=== PATIENT | male | born 1965 | race Caucasian/White ===

== ENCOUNTER 2017-10-18 19:40 | Emergency (ER) | payer OTHER ==
[~2017-10-18] VITALS: Ht 165.1 cm; Wt 127.0 kg
[~2017-10-18 19:40] MED LIST: Bactrim Ds Tab1 EACH PO; Cleocin HCl300 MG PO; HYDR1TAB94 PO; Norco 5-325 Ta1 EACH PO
[2017-10-18] MEDS ORDERED: Monodox100 MG PO (21:08)
== END 2017-10-18 21:20 | disposition home or self-care (01) ==
LOC: ER 19:40
DX: S80.12XA Contusion of left lower leg, initial encounter (principal); L03.116 Cellulitis of left lower limb; V89.2XXA Person injured in unspecified motor-vehicle accident, traffic, initial encounter; Z79.891 Long term (current) use of opiate analgesic
CPT/HCPCS: 73562-LT; 93971; 99284

== ENCOUNTER 2019-02-01 13:07 | Emergency (ER) | payer OTHER ==
[~2019-02-01] VITALS: Ht 165.1 cm; Wt 127.0 kg
[~2019-02-01 13:07] MED LIST changes: +Monodox100 MG PO
[2019-02-01] MEDS ORDERED: HYDR1TAB94 PO (14:56)
[2019-02-01] MEDS ORDERED: IBUP600 PO (14:56)
== END 2019-02-01 15:11 | disposition home or self-care (01) ==
LOC: ER 13:07
DX: R07.81 Pleurodynia (principal); Z79.899 Other long term (current) drug therapy; Z79.891 Long term (current) use of opiate analgesic; W18.39XA Other fall on same level, initial encounter
CPT/HCPCS: 71101; 99283-25

== ENCOUNTER 2019-02-03 15:34 | Emergency (ER) | payer OTHER ==
[~2019-02-03] VITALS: Ht 165.1 cm; Wt 127.0 kg
[~2019-02-03 15:34] MED LIST changes: +IBUP600 PO
[2019-02-03 17:20] LABS: BASOPHILS ABSOLUTE AUTO 0.03 K/mm3 (0.00-0.23); BASOPHILS PERCENT AUTO 1 % (0-2); EOSINOPHILS ABSOLUTE AUTO 0.08 K/mm3 (0.00-0.68); EOSINOPHILS PERCENT AUTO 1 % (0-6); Hematocrit 48.6 % (37.0-53.0); Hemoglobin 16.1 g/dL (13.5-17.5); IMMATURE GRAN ABSOLUTE AUTO 0.01 K/mm3 (0.00-0.10); IMMATURE GRAN PERCENT AUTO 0 % (0-1); LYMPHOCYTES ABSOLUTE AUTO 1.39 K/mm3 (0.84-5.20); LYMPHOCYTES PERCENT AUTO 25 % (21-46); MONOCYTES ABSOLUTE AUTO 0.42 K/mm3 (0.16-1.47); MONOCYTES PERCENT AUTO 7 % (4-13); Mean Corpuscular HGB 31.4 pg (26.0-34.0); Mean Corpuscular HGB Conc 33.1 g/dL (31.5-36.5); Mean Corpuscular Volume 95 fL (80-100); NEUTROPHILS ABSOLUTE AUTO 3.72 K/mm3 (1.96-9.15); NEUTROPHILS PERCENT AUTO 66 % (41-73); Platelet Count 191 K/mm3 (150-400); RDW Standard Deviation 45.4 fL (35.1-46.3); Red Blood Cell Count 5.12 M/mm3 (4.30-5.90); White Blood Cell Count 5.65 K/mm3 (4.00-11.30)
[2019-02-03 17:40] LABS: Alanine Aminotransfer (ALT/SGP 18 U/L (12-78); Albumin, Blood 3.8 g/dL (3.4-5.0); Alk Phos 80 U/L (50-136); Anion Gap 4 mmol/L (6-16); Aspartate Aminotrans (AST/SGOT 12 U/L (12-37); Bilirubin, Total 0.9 mg/dL (0.1-1.0); Blood Urea Nitrogen 15 mg/dL (8-24); Bun/Creatinine Ratio 19.7 (12.0-20.0); CO2, Blood 31 mmol/L (21-32); Calcium, Blood 9.2 mg/dL (8.5-10.1); Chloride, Blood 103 mmol/L (98-108); Creatinine, Blood 0.76 mg/dL (0.60-1.20); Glomerular Filtration Rate >60 (60-); Glucose, Blood 84 mg/dL (70-99); Potassium, Blood 3.9 mmol/L (3.5-5.5); Sodium, Blood 138 mmol/L (136-145); Total Protein, Blood 7.8 g/dL (6.4-8.2)
[2019-02-03] MEDS ORDERED: Percocet 5-3251 EACH PO (22:03)
== END 2019-02-03 22:20 | disposition home or self-care (01) ==
LOC: ER 15:34
PROVIDERS: Physician Assistant
DX: R10.12 Left upper quadrant pain (principal); R07.81 Pleurodynia; Z98.890 Other specified postprocedural states
CPT/HCPCS: 36415; 74177; 80053; 83690; 85025; 99284-25; A9270; Q9967

== ENCOUNTER 2019-12-04 22:38 | Inpatient (IN) | payer OTHER ==
[~2019-12-04] VITALS: Ht 165.1 cm; Wt 132.0 kg
[~2019-12-04 22:38] MED LIST changes: +Percocet 5-3251 EACH PO
[2019-12-04 23:34] LABS: BASOPHILS ABSOLUTE AUTO 0.02 K/mm3 (0.00-0.23); BASOPHILS PERCENT AUTO 0 % (0-2); EOSINOPHILS ABSOLUTE AUTO 0.01 K/mm3 (0.00-0.68); EOSINOPHILS PERCENT AUTO 0 % (0-6); Hematocrit 46.4 % (37.0-53.0); IMMATURE GRAN ABSOLUTE AUTO 0.02 K/mm3 (0.00-0.10); IMMATURE GRAN PERCENT AUTO 0 % (0-1); LYMPHOCYTES ABSOLUTE AUTO 0.65 K/mm3 (0.84-5.20); LYMPHOCYTES PERCENT AUTO 7 % (21-46); MONOCYTES ABSOLUTE AUTO 0.78 K/mm3 (0.16-1.47); MONOCYTES PERCENT AUTO 9 % (4-13); Mean Corpuscular HGB Conc 32.3 g/dL (31.5-36.5); Mean Corpuscular Volume 96 fL (80-100); Mean Platelet Volume 10.9 fL (9.1-12.4); NEUTROPHILS ABSOLUTE AUTO 7.44 K/mm3 (1.96-9.15); NEUTROPHILS PERCENT AUTO 84 % (41-73); Platelet Count 173 K/mm3 (150-400); RDW Coefficient Variation 13.4 % (11.7-14.2); Red Blood Cell Count 4.84 M/mm3 (4.30-5.90); White Blood Cell Count 8.92 K/mm3 (4.00-11.30)
[2019-12-04 23:51] LABS: Alanine Aminotransfer (ALT/SGP 17 U/L (12-78); Albumin, Blood 3.3 g/dL (3.4-5.0); Albumin/Globulin Ratio 0.8 (0.8-1.8); Alk Phos 77 U/L (50-136); Anion Gap 5 mmol/L (6-16); Aspartate Aminotrans (AST/SGOT 14 U/L (12-37); Bilirubin, Total 1.6 mg/dL (0.1-1.0); Blood Urea Nitrogen 17 mg/dL (8-24); Bun/Creatinine Ratio 17.7 (12.0-20.0); CO2, Blood 30 mmol/L (21-32); Calcium, Blood 8.6 mg/dL (8.5-10.1); Chloride, Blood 104 mmol/L (98-108); Creatinine, Blood 0.96 mg/dL (0.60-1.20); Globulin, Blood 4.1 g/dL (2.2-4.0); Glomerular Filtration Rate >60 (60-); Glucose, Blood 144 mg/dL (70-99); Potassium, Blood 4.1 mmol/L (3.5-5.5); Sodium, Blood 139 mmol/L (136-145); Total Protein, Blood 7.4 g/dL (6.4-8.2)
[2019-12-05 00:45] LABS: Source, Urine Clean Catch
[2019-12-05 00:59] LABS: Bilirubin, Urine Neg (Neg); Blood, Urine 2+ (Neg); Glucose Qualitative, Urine Neg (Neg); Ketones, Urine Neg (Neg); Leukocyte Esterase, Urine 2+ (Neg); Nitrite, Urine Neg (Neg); Protein, Urine 1+ (Neg); Specific Gravity, Urine 1.005 (1.003-1.022); Urobilinogen, Urine 1+ (Normal)
[2019-12-05 01:10] LABS: Appearance, Urine Clear (Clear); Color, Urine Yellow (P-Yellow)
[2019-12-05 01:11] LABS: Bacteria Mod /hpf; Squamous Epithelial Cells Rare /hpf (Few)
[2019-12-05 05:11] LABS: BASOPHILS ABSOLUTE AUTO 0.03 K/mm3 (0.00-0.23); BASOPHILS PERCENT AUTO 0 % (0-2); EOSINOPHILS ABSOLUTE AUTO 0.01 K/mm3 (0.00-0.68); EOSINOPHILS PERCENT AUTO 0 % (0-6); Hematocrit 44.5 % (37.0-53.0); Hemoglobin 14.5 g/dL (13.5-17.5); IMMATURE GRAN ABSOLUTE AUTO 0.03 K/mm3 (0.00-0.10); IMMATURE GRAN PERCENT AUTO 0 % (0-1); LYMPHOCYTES ABSOLUTE AUTO 1.03 K/mm3 (0.84-5.20); LYMPHOCYTES PERCENT AUTO 11 % (21-46); MONOCYTES ABSOLUTE AUTO 0.82 K/mm3 (0.16-1.47); MONOCYTES PERCENT AUTO 9 % (4-13); Mean Corpuscular HGB 31.3 pg (26.0-34.0); Mean Corpuscular HGB Conc 32.6 g/dL (31.5-36.5); Mean Corpuscular Volume 96 fL (80-100); Mean Platelet Volume 11.1 fL (9.1-12.4); NEUTROPHILS ABSOLUTE AUTO 7.29 K/mm3 (1.96-9.15); NEUTROPHILS PERCENT AUTO 79 % (41-73); Platelet Count 184 K/mm3 (150-400); RDW Coefficient Variation 13.7 % (11.7-14.2); RDW Standard Deviation 48.8 fL (35.1-46.3); Red Blood Cell Count 4.64 M/mm3 (4.30-5.90); White Blood Cell Count 9.21 K/mm3 (4.00-11.30)
[2019-12-05 05:52] LABS: Alanine Aminotransfer (ALT/SGP 16 U/L (12-78); Albumin, Blood 3.2 g/dL (3.4-5.0); Albumin/Globulin Ratio 0.8 (0.8-1.8); Alk Phos 71 U/L (50-136); Anion Gap 7 mmol/L (6-16); Aspartate Aminotrans (AST/SGOT 14 U/L (12-37); Bilirubin, Total 1.5 mg/dL (0.1-1.0); Blood Urea Nitrogen 16 mg/dL (8-24); Bun/Creatinine Ratio 16.2 (12.0-20.0); CO2, Blood 27 mmol/L (21-32); Calcium, Blood 8.3 mg/dL (8.5-10.1); Chloride, Blood 104 mmol/L (98-108); Creatinine, Blood 0.99 mg/dL (0.60-1.20); Globulin, Blood 3.9 g/dL (2.2-4.0); Glomerular Filtration Rate >60 (60-); Glucose, Blood 129 mg/dL (70-99); Potassium, Blood 3.9 mmol/L (3.5-5.5); Sodium, Blood 138 mmol/L (136-145); Total Protein, Blood 7.1 g/dL (6.4-8.2)
--- NOTE | 2019-12-05 07:13 | NUR ---
Rn summary: Patient was admitted to room 356 via stretcher from the ED. Pt is alert and oriented. Admission was completed, oriented to room. Pt still had a FRANCOIS on arrival but it is better this am. Patient does have some L flank pain but declines sublimaze. Pt assessment is otherwise good. Pt has been able to rest. Up independantly to BR. Call light in reach. Will continue to monitor.
--- NOTE | 2019-12-05 19:20 | NUR ---
SHIFT SUMMARY: C/O PAIN IN L FLANK AND FRANCOIS (POSSIBLY CAFFEINE RELATED-DRINKS A LOT OF [place] DEW AT HOME); MEDICATED PER EMAR WITH ADEQUATE RELIEF. TOLERATING PO INTAKE, DENIED NAUSEA. AMBULATING INDEPENDENTLY IN ROOM. AT BEDSIDE PART OF THE DAY. IS ANXIOUS TO BE DISCHARGED.
--- NOTE | 2019-12-06 04:58 | NUR ---
SHIFT SUMMARY: SALVADOR IS A&OX4, INDEPENDENT IN THE ROOM. HIS IS AT BEDSIDE. HE DOES HAVE BLE EDEMA, WHICH HE STATES DEVELOPS BY THE END OF THE DAY AT BASELINE. 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 HE IS TOLERATING PO INTAKE WELL. VSS, NO ACUTE EVENTS OVERNIGHT. IV TO L FA PATENT, SALINE LOCKED. HE IS LYING IN BED WITH HIS CALL LIGHT IN REACH. WILL REPORT TO DAY SHIFT RN.
[2019-12-06] MEDS ORDERED: PANT40 PO (10:40)
[2019-12-06] MEDS ORDERED: ACET325 PO ×2 (10:40→10:41)
[2019-12-06] MEDS ORDERED: PROBIOTIC PO (10:41)
[2019-12-06] MEDS ORDERED: SULFAMETHOXAZO1 EAC1 PO (10:42)
--- NOTE | 2019-12-06 11:55 | NUR ---
1266 PT DISCHARGED VIA WC WITH SPOUSE. DC INSTRUCTIONS REVIEWED WITH PT- PT VERB UNDERSTANDING OF DC INSTRUCTIONS, FOLLOW UP, AND MEDICATIONS. PERSONAL BELONGINGS WITH PT. NEW RX FAXED TO [facility] IN [place].
== END 2019-12-06 11:37 | disposition home or self-care (01) | DRG 872 ==
LOC: ER 22:38 → MEDS 22:39
PROVIDERS: Emergency Medicine; ADMIT Internal Medicine
DX: A41.9 Sepsis, unspecified organism (principal); N12 Tubulo-interstitial nephritis, not specified as acute or chronic; K52.9 Noninfective gastroenteritis and colitis, unspecified; K21.9 Gastro-esophageal reflux disease without esophagitis; Z87.828 Personal history of other (healed) physical injury and trauma
CPT/HCPCS: 36415; 74177; 80053; 81001; 83605; 83690; 85025; 87040; 96361; 96365; 96366; 96372; 96375; 99285-25; A9270; A9270-GY; G0378; J0696; J1650; J3010; J7030; Q9967

== ENCOUNTER 2020-08-05 07:36 | Day surgery (SDC) | payer OTHER ==
[~2020-08-05] VITALS: Ht 165.1 cm; Wt 131.6 kg
== END 2020-08-05 22:41 | disposition home or self-care (01) ==
LOC: ORSCMMR 07:36 → ORD 08:30 → ORSCMMR 22:41
PROC: 0DJD8ZZ Inspection of Lower Intestinal Tract, Via Natural or Artificial Opening Endoscopic (ICD-10-PCS; principal; 2020-08-05)
DX: Z12.11 Encounter for screening for malignant neoplasm of colon (principal); K57.30 Diverticulosis of large intestine without perforation or abscess without bleeding; G47.33 Obstructive sleep apnea (adult) (pediatric); E66.01 Morbid (severe) obesity due to excess calories; Z68.42 Body mass index [BMI] 45.0-49.9, adult
CPT/HCPCS: J2001; J2704; J7120

== ENCOUNTER 2020-12-04 20:19 | Inpatient (IN) | payer OTHER ==
[~2020-12-04] VITALS: Ht 165.1 cm; Wt 136.1 kg
[~2020-12-04 20:19] MED LIST changes: +ACET325 PO; +PANT40 PO; +PROBIOTIC PO; +SULFAMETHOXAZO1 EAC1 PO
[2020-12-04 20:33] LABS: BASOPHILS ABSOLUTE AUTO 0.04 K/mm3 (0.00-0.23); BASOPHILS PERCENT AUTO 0 % (0-2); EOSINOPHILS ABSOLUTE AUTO 0.06 K/mm3 (0.00-0.68); EOSINOPHILS PERCENT AUTO 1 % (0-6); Hematocrit 48.3 % (37.0-53.0); Hemoglobin 16.3 g/dL (13.5-17.5); IMMATURE GRAN ABSOLUTE AUTO 0.07 K/mm3 (0.00-0.10); IMMATURE GRAN PERCENT AUTO 1 % (0-1); LYMPHOCYTES ABSOLUTE AUTO 1.97 K/mm3 (0.84-5.20); LYMPHOCYTES PERCENT AUTO 18 % (21-46); MONOCYTES ABSOLUTE AUTO 0.63 K/mm3 (0.16-1.47); MONOCYTES PERCENT AUTO 6 % (4-13); Mean Corpuscular HGB 31.6 pg (26.0-34.0); Mean Corpuscular HGB Conc 33.7 g/dL (31.5-36.5); Mean Corpuscular Volume 94 fL (80-100); Mean Platelet Volume 11.2 fL (9.1-12.4); NEUTROPHILS ABSOLUTE AUTO 8.16 K/mm3 (1.96-9.15); NEUTROPHILS PERCENT AUTO 75 % (41-73); Platelet Count 253 K/mm3 (150-400); RDW Coefficient Variation 13.2 % (11.7-14.2); RDW Standard Deviation 45.9 fL (35.1-46.3); Red Blood Cell Count 5.16 M/mm3 (4.30-5.90); White Blood Cell Count 10.93 K/mm3 (4.00-11.30)
[2020-12-04 20:47] LABS: Alanine Aminotransfer (ALT/SGP 29 U/L (12-78); Albumin, Blood 3.9 g/dL (3.4-5.0); Alk Phos 87 U/L (50-136); Anion Gap 9 mmol/L (6-16); Aspartate Aminotrans (AST/SGOT 33 U/L (12-37); Bilirubin, Total 1.1 mg/dL (0.1-1.0); Blood Urea Nitrogen 16 mg/dL (8-24); Bun/Creatinine Ratio 13.9 (12.0-20.0); CO2, Blood 25 mmol/L (21-32); Calcium, Blood 9.1 mg/dL (8.5-10.1); Chloride, Blood 105 mmol/L (98-108); Creatinine, Blood 1.15 mg/dL (0.60-1.20); Globulin, Blood 3.9 g/dL (2.2-4.0); Glomerular Filtration Rate >60 (60-); Glucose, Blood 167 mg/dL (70-99); Potassium, Blood 3.9 mmol/L (3.5-5.5); Sodium, Blood 139 mmol/L (136-145); Total Protein, Blood 7.8 g/dL (6.4-8.2)
[2020-12-04 22:07] LABS: Troponin I <0.015 ng/mL (0.000-0.040)
[2020-12-05 01:44] LABS: SARS-Cov-2 (COVID-19) PCR, MMC NEGATIVE (NEGATIVE)
[2020-12-05 04:36] LABS: Hematocrit 45.1 % (37.0-53.0); Hemoglobin 14.8 g/dL (13.5-17.5); Mean Corpuscular HGB 31.8 pg (26.0-34.0); Mean Corpuscular HGB Conc 32.8 g/dL (31.5-36.5); Mean Corpuscular Volume 97 fL (80-100); Mean Platelet Volume 10.9 fL (9.1-12.4); Platelet Count 186 K/mm3 (150-400); RDW Coefficient Variation 13.5 % (11.7-14.2); Red Blood Cell Count 4.65 M/mm3 (4.30-5.90); White Blood Cell Count 13.14 K/mm3 (4.00-11.30)
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
[2020-12-05 04:55] LABS: Anion Gap 5 mmol/L (6-16); Blood Urea Nitrogen 17 mg/dL (8-24); CO2, Blood 27 mmol/L (21-32); Calcium, Blood 8.1 mg/dL (8.5-10.1); Chloride, Blood 106 mmol/L (98-108); Glomerular Filtration Rate >60 (60-); Glucose, Blood 152 mg/dL (70-99); Sodium, Blood 138 mmol/L (136-145)
--- NOTE | 2020-12-05 10:46 | NUR ---
DR LANGSTON IN TO SEE PT AND .
--- NOTE | 2020-12-05 11:41 | NUR ---
PT WORKING WITH THERAPY AT THIS TIME
[2020-12-05 13:14] LABS: International Normalized Ratio 1.06; Prothrombin Time Results 11.4 Sec (9.7-11.5)
--- NOTE | 2020-12-05 16:42 | NUR ---
PT BACK FROM MRI. ASSISTED INTO BED WITH 3X ASSIST, GB, AND FWW.
--- NOTE | 2020-12-05 17:09 | NUR ---
SHIFT SUMMARY PT HAS BEEN A/O X4. TOLERATING PO INTAKE AND VOIDING; WILL BE NPO AT MIDNIGHT FOR POSSIBLE SURGERY TOMORROW. MRI OF L KNEE AND CT OF HEAD COMPLETED TODAY. PT WAS SEEN BY DR LANGSTON AND DR XAVIER. IMMOBILIZER IS IN THE ROOM AND PT IS OKAY TO USE IT PRN. HE HAS BEEN LEAVING IT OFF WHILE IN BED OR SITTING IN CHAIR. PT WORKED WITH THERAPY TODAY AND WAS ABLE TO TRANSFER WITH 2-3 ASSIST USING FWW AND GAIT BELT. PAIN IS BEING MANAGED WITH PO PAIN MED, TORADOL, AND DILAUDED. PT HAS BEEN USING HOME CPAP WHILE SLEEPING AND O2 PRN. PT CURRENTLY RESTING IN BED.
--- NOTE | 2020-12-06 06:14 | NUR ---
PT VSS T/O NIGHT. SATS >90% ON RA, CPAP ON WHILE SLEEPING. PULM TOILET EXERCISES REINFORCED. PAIN MGD PER EMAR W/REP RELIEF. IMMOBILIZER IN PLACE TO LLE. PT NPO POST MIDNIGHT FOR PLAN FOR SURGERY TODAY.
--- NOTE | 2020-12-06 14:51 | NUR ---
TRANSPORT TO OR PT TRANSPORTED TO OR. PT A&0 X4. @ BEDSIDE.
--- NOTE | 2020-12-06 14:55 | NUR ---
History, Chart, Medications and Allergies reviewed before start of procedure.Pre-Op teaching done. Pt verbalizes understanding. Patient confirms NPO status and agrees with scheduled surgery.
--- NOTE | 2020-12-06 19:36 | NUR ---
SHIFT SUMMARY PT HAS BEEN A&O X4 THROUGHOUT SHIFT WHEN PRESENT ON FLOOR. PT HAS BEEN A PLEASENT MOOD. PT HAD S/R OF LLE. PT @ BEDSIDE THROUGHOUT DAY AND WAS PRESENT WHEN PT RETURNED FROM SURGERY. PLAN TO ADVANCE DIET TOLERATED. PEDAL PULSES PRESENT. TOES COOL, DRY, AND PINK. CAP REFILL 2. LLE ELEVATED ON PILLOWS, PT ON 10 L VIA CPAP. DIMINISHED LUNG SOUNDS, COURSE UPPER LOBES. IMPORTANCE OF INCENTIVESPIROMETER REINFORCED.
[2020-12-07 04:47] LABS: BASOPHILS ABSOLUTE AUTO 0.01 K/mm3 (0.00-0.23); BASOPHILS PERCENT AUTO 0 % (0-2); EOSINOPHILS PERCENT AUTO 0 % (0-6); Hematocrit 36.9 % (37.0-53.0); Hemoglobin 12.2 g/dL (13.5-17.5); IMMATURE GRAN ABSOLUTE AUTO 0.06 K/mm3 (0.00-0.10); IMMATURE GRAN PERCENT AUTO 1 % (0-1); LYMPHOCYTES ABSOLUTE AUTO 0.46 K/mm3 (0.84-5.20); LYMPHOCYTES PERCENT AUTO 6 % (21-46); MONOCYTES ABSOLUTE AUTO 0.41 K/mm3 (0.16-1.47); MONOCYTES PERCENT AUTO 5 % (4-13); Mean Corpuscular HGB 31.9 pg (26.0-34.0); Mean Corpuscular HGB Conc 33.1 g/dL (31.5-36.5); Mean Corpuscular Volume 97 fL (80-100); Mean Platelet Volume 11.4 fL (9.1-12.4); NEUTROPHILS ABSOLUTE AUTO 7.06 K/mm3 (1.96-9.15); NEUTROPHILS PERCENT AUTO 88 % (41-73); Platelet Count 148 K/mm3 (150-400); RDW Coefficient Variation 13.3 % (11.7-14.2); RDW Standard Deviation 47.8 fL (35.1-46.3); Red Blood Cell Count 3.82 M/mm3 (4.30-5.90)
--- NOTE | 2020-12-07 04:56 | NUR ---
SHIFT SUMMARY: PT POD#1 FOR QUADRICEPS TENDON REPAIR LLE. PT A&O X4. VS WNL T/O SHIFT. BRACE+MORRIS WRAP IN PLACE TO LLE. PT ABLE TO WIGGLE TOES. CAP REFILL WNL. PULSES PALPABLE. DENIES N/T. PAIN MANAGED WITH TORADOL AND NORCO PER EMAR. PT RATING PAIN 4/[address] THIS [address]ORNING[address] CPAP IN PLACE T/O NIGHT. PT ON 10LO2 IN BEGINNING OF SHIFT AND HAS BEEN ABLE TO WEAN TO 4L. WHEN CPAP REMOVED PT DESATS TO 89% ON RA. LUNGS DIMINISHED AND CLEAR T/O. O2 CURRENTLY 96%. HR HAS IMPROVED AND NOW IN 70, 80'S. PT VOIDING IN URINAL. AT BEDSIDE. PLAN FOR PT.
[2020-12-07 05:01] LABS: Anion Gap 2 mmol/L (6-16); Blood Urea Nitrogen 17 mg/dL (8-24); Bun/Creatinine Ratio 21.6 (12.0-20.0); CO2, Blood 31 mmol/L (21-32); Calcium, Blood 8.3 mg/dL (8.5-10.1); Chloride, Blood 105 mmol/L (98-108); Creatinine, Blood 0.79 mg/dL (0.60-1.20); Glomerular Filtration Rate >60 (60-); Glucose, Blood 175 mg/dL (70-99); Potassium, Blood 4.9 mmol/L (3.5-5.5); Sodium, Blood 138 mmol/L (136-145)
--- NOTE | 2020-12-07 09:07 | NUR ---
12/07/20 0907 Lalitha Magallanes VERIFICATIONS: EDIT CHART.
--- NOTE | 2020-12-07 17:51 | NUR ---
SHIFT SUMMARY PT A&O X4. PT IN PLEASENT MOOD THROUGHOUT SHIFT. UP TO CHAIR MOST OF SHIFT. WORKED W/ PT/OT. PAIN RESONABLY MANAGED. RESP STATUS IMPROVED BUT STILL REQUIRING 2L O2 VIA NC WHILE AWAKE AND BLEED INTO CPAP WHEN ASLEEP. PT SISTER @ BEDSIDE DURING VISITING HOURS. TOLERATING ORAL INTAKE WELL. PPP.
--- NOTE | 2020-12-08 04:25 | NUR ---
SHIFT SUMMARY: PT POD#2 FOR A TENDON REPAIR TO LLE. AQUACEL DRESSING C/D/I WITH BRACE IN PLACE. PAIN WELL MANAGED WITH NORCO PER EMAR. PT ON RA IN BEGINNING OF SHIFT. O2 OCC DROPPING TO 89%, HOWEVER MOSTLY >90%. PT USING CPAP THROUGHOUT NIGHT. VOIDING IN URINAL INDEPENDENTLY. APOLINAR PO. SALINE LOCKED. AWAITING PT CLEARANCE. PLAN FOR POSSIBLE DISCHARGE HOME WITH HOME HEALTH.
[2020-12-08] MEDS ORDERED: ENOX40I SC (10:45)
[2020-12-08] MEDS ORDERED: SULTRIDS PO (10:45)
[2020-12-08] MEDS ORDERED: HYDR1TAB94 PO (10:45)
--- NOTE | 2020-12-08 11:50 | NUR ---
DISCHARGE SUMMARY PATIENT ALERT AND ORIENTED THROUGHOUT AM. TOLERATING REGULAR DIET AND FLUIDS. SALINE LOCKED. VOIDING WELL. PAIN CONTROLLED WITH PO PAIN MEDS. CLEARED BY PHYSICAL THERAPY TO GO HOME WITH HOME HEALTH. DISCHARGE ORDERS OBTAINED. DISCHARGE EDUCATION GIVEN ON ACTIVITY, FOLLOW UP, WOUND CARE, NEW RXS. PATIENT LEFT UNIT AT 1145 VIA WHEELCHAIR FOR TRANSPORT HOME BY AMBULANCE.
== END 2020-12-08 11:43 | DRG 958 ==
LOC: ER 20:19 → SURS 23:02 → ER 12-05 00:11 → SURS 12-05 00:11
PROVIDERS: Emergency Medicine; Orthopaedic Surgery; ADMIT Surgery
PROC: 0HQLXZZ Repair Left Lower Leg Skin, External Approach (ICD-10-PCS; principal; 2020-12-05)
PROC: 5A09357 Assistance with Respiratory Ventilation, Less than 24 Consecutive Hours, Continuous Positive Airway Pressure (ICD-10-PCS; 2020-12-05)
PROC: 0LMM0ZZ Reattachment of Left Upper Leg Tendon, Open Approach (ICD-10-PCS; 2020-12-06)
PROC: 0QBF0ZZ Excision of Left Patella, Open Approach (ICD-10-PCS; 2020-12-06)
DX: S76.192A Other specified injury of left quadriceps muscle, fascia and tendon, initial encounter (principal); S27.1XXA Traumatic hemothorax, initial encounter; S22.42XA Multiple fractures of ribs, left side, initial encounter for closed fracture; S06.9X9A Unspecified intracranial injury with loss of consciousness of unspecified duration, initial encounter; S02.19XA Other fracture of base of skull, initial encounter for closed fracture; S82.092A Other fracture of left patella, initial encounter for closed fracture; S22.22XA Fracture of body of sternum, initial encounter for closed fracture; Z68.42 Body mass index [BMI] 45.0-49.9, adult; J90 Pleural effusion, not elsewhere classified; E66.2 Morbid (severe) obesity with alveolar hypoventilation; S27.892A Contusion of other specified intrathoracic organs, initial encounter; Z20.822 Contact with and (suspected) exposure to COVID-19; H73.893 Other specified disorders of tympanic membrane, bilateral; S81.012A Laceration without foreign body, left knee, initial encounter; H91.92 Unspecified hearing loss, left ear; Z86.14 Personal history of Methicillin resistant Staphylococcus aureus infection; Z98.890 Other specified postprocedural states; Z90.89 Acquired absence of other organs; V89.2XXA Person injured in unspecified motor-vehicle accident, traffic, initial encounter; Y99.8 Other external cause status
CPT/HCPCS: 12001; 29505; 36415; 70450; 70486; 71045; 71260; 72125; 73562-LT; 73721; 74177; 80048; 80053; 83735; 84484; 85025; 85027; 85610; 85730; 86850; 86900; 86901; 90471; 90714; 92507; 92523; 94762; 96365-59; 96375-59; 96376-59; 97110; 97161; 97162; 97166; 97530; 97535; 99285-25; A9270; C1713; J0690; J1100; J1170; J1650; J1885; J2250; J2270; J2370; J2405; J2704; J3010; J7120; Q9967; U0004